=== PATIENT | male | born 1940 | race Caucasian/White ===

== ENCOUNTER 2017-10-23 09:26 | Emergency (ER) | payer MEDICARE, OTHER ==
[~2017-10-23] VITALS: Ht 190.5 cm; Wt 150.0 kg
[~2017-10-23 09:26] MED LIST: LORT5TAB PO; MEDR4PAK3 PO; METH4TAB6 PO; PRED20 PO
[2017-10-23 09:32] VITALS: BP 141/72; PULSE 84; RESP 22; TEMP 97.7; O2SAT 93
--- NOTE | 2017-10-23 10:20 | PD ---
HPI Chief Complaint: Skin Problem Time Seen by Provider: 10:11 Travel History International Travel<30 days: No Contact w/Intl Traveler<30days: No Traveled to known affect area: No History of Present Illness HPI This is a 76-year-old male who presents to the emergency department with a growth on his right forearm, constant, worsening over the past 2 weeks associated with some tenderness around the area. He tried to contact his primary care physician but found out that he retired. He's not had any drainage from the area. 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) Psychiatric: No Reproductive: No Respiratory: Yes Immunizations Current: Yes Sleep Apnea: Yes (HAS A CPAP MACHINE DOES NOT USE ALL THE TIME) Social History Alcohol Use: Yes (one drink daily) Tobacco Use: No Substance Use: No Allergies-Medications (Allergen,Severity, Reaction): Coded Allergies: penicillin G (Unverified Allergy, Unknown, 05/10/17) Reported Meds & Prescriptions Reported Meds & Active Scripts Active Lortab 5/500 (Acetaminophen/Hydrocodone Bitart) 5 Mg/500 Mg Tab 1 Tab PO Q6 PRN Deltasone (Prednisone) 20 Mg Tab 20 Mg PO DIRECTED 2 TABS PO DAILY FOR 3 DAYS,THEN 1 TAB PO DAILY FOR 3 DAYS. BEGIN ON 06/10/13 Medrol Dosepak (Methylprednisolone) 4 Mg Ebenezer 4 Mg PO DIRECTED TAKE DIRECTED Reported Medrol 4 Mg Tab (Methylprednisolone) 4 Mg Tab 4 Mg PO DAILY Review of Systems General / Constitutional: No: Fever, Chills Gastrointestinal: No: Nausea, Vomiting Physical Exam Narrative GENERAL: Well-appearing, no acute distress, nontoxic SKIN: 2 cm raised lesion, ulcerated, spongy with some surrounding erythema on the right forearm HEAD: Atraumatic. Normocephalic. ENT: No nasal bleeding or discharge. Moist mucous membranes MUSCULOSKELETAL: No obvious deformities. No clubbing. No cyanosis. No edema. NEUROLOGICAL: Awake and alert. No obvious cranial nerve deficits. Motor grossly within normal limits. Normal speech. PSYCHIATRIC: Appropriate mood and affect; insight and judgment normal. Data Data Last Documented VS Vital Signs Date Time Temp Pulse Resp B/P (MAP) Pulse Ox O2 Delivery O2 Flow Rate FiO2 10/23/17 09:32 97.7 84 22 141/72 (95) 93 Room Air MDM Medical Decision Making Medical Screen Exam Complete: Yes Emergency Medical Condition: Yes Differential Diagnosis Skin cancer, hemangioma, cyst, abscess Narrative Course This is a 76-year-old male who presents to the emergency department with a growth on his right forearm. It does appear somewhat cancerous. I explain to the family were limited and how we can evaluate this in the emergency department Patient requires outpatient follow-up with dermatology. He was given a list of local dermatologists. Diagnosis Primary Impression: Skin abnormality Patient Instructions: General Instructions Additional Instructions: Follow up with a legal executive as soon as possible. Med/Other Pt SpecificInfo: No Change to Meds Disposition: 01 DISCHARGE HOME Condition: Stable Maranda Nickerson MD Oct 23, 2017 10:20
== END 2017-10-23 10:43 | disposition home or self-care (01) ==
LOC: NEPD 09:26
DX: R23.9 Unspecified skin changes (principal); Z88.0 Allergy status to penicillin; Z79.899 Other long term (current) drug therapy
CPT/HCPCS: 99281

== ENCOUNTER 2017-12-20 05:45 | Emergency (ER) | payer MEDICARE ==
[~2017-12-20] VITALS: Ht 190.5 cm; Wt 154.0 kg
[2017-12-20 05:52] VITALS: BP 162/100; PULSE 89; RESP 18; TEMP 98.8; O2SAT 96
--- NOTE | 2017-12-20 06:19 | PD ---
HPI Chief Complaint: Fall Time Seen by Provider: 05:55 Travel History International Travel<30 days: No Contact w/Intl Traveler<30days: No Traveled to known affect area: No History of Present Illness HPI The patient is a 76-year-old male that fell yesterday and hit his left knee anteriorly after tripping and falling. The pain got worse and tonight he could not sleep. He is not on any anticoagulants. He has an allergy to penicillin G. He is not on any medications. He is a former smoker and has sleep apnea and has a CPAP machine but does not use it all the time. He denies any other injury. He denies any locking or giving away. 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) Psychiatric: No Reproductive: No Respiratory: Yes Immunizations Current: Yes Sleep Apnea: Yes (HAS A CPAP MACHINE DOES NOT USE ALL THE TIME) Tetanus Vaccination: Unknown Influenza Vaccination: Yes Past Surgical History Surgical History: No Previous Surgery Other Surgery: No Social History Alcohol Use: Yes (one drink daily) Tobacco Use: No Substance Use: No Allergies-Medications (Allergen,Severity, Reaction): Coded Allergies: penicillin G (Unverified Allergy, Unknown, 12/20/17) Reported Meds & Prescriptions Reported Meds & Active Scripts Active No Active Prescriptions or Reported Medications Review of Systems Except as stated in HPI: all other systems reviewed are Neg Physical Exam Narrative GENERAL: Well-nourished, obese patient in moderate apparent distress with his left knee discomfort.. SKIN: Focused skin assessment warm/dry. HEAD: Normocephalic. EYES: No scleral icterus. No injection or drainage. NECK: Supple, trachea midline. No JVD or lymphadenopathy. CARDIOVASCULAR: Regular rate and rhythm without murmurs, gallops, or rubs. RESPIRATORY: Breath sounds equal bilaterally. No accessory muscle use. GASTROINTESTINAL: Abdomen soft, non-tender, nondistended. MUSCULOSKELETAL: No cyanosis, or edema. There is lateral joint line tenderness present. No deformity is noted on the knee. There is no patellar tenderness present. No obvious contusions are seen. He does get relief when pillows are placed under the knee so the knees in slight flexion. Collaterals, drawer, Morgan all test intact. BACK: Nontender without obvious deformity. No CVA tenderness. Data Data Last Documented VS Vital Signs Date Time Temp Pulse Resp B/P (MAP) Pulse Ox O2 Delivery O2 Flow Rate FiO2 12/20/17 05:55 89 18 96 Room Air 12/20/17 05:52 98.8 162/100 (120) Orders Orders Knee, Complete (4vws) (12/20/17 05:55) [facility] Medical Decision Making Medical Screen Exam Complete: Yes Emergency Medical Condition: Yes Medical Record Reviewed: Yes Interpretation(s) The x-ray of the left knee shows mild osteoarthritis without fracture. Differential Diagnosis Contusion knee, osteoarthritis, cartilage tear, fracture knee, joint effusion Narrative Course The patient appears to have a contusion of the knee. It is quite painful and the patient will be given Percocet 5. He is to rest with the knee slightly flexed. He is also given Mobic. He should follow-up with his primary care physician next week. Diagnosis Primary Impression: Contusion of left knee Additional Instructions: Do not drink alcohol or drive on the Percocet 7.5. It will likely make you dizzy and even nauseated. Drink plenty of fluids so you do not get constipated. Follow-up with your primary care physician next week. Med/Other Pt SpecificInfo: Prescription(s) given Scripts Oxycodone-Acetaminophen (Percocet) 7.5-325 mg Tab 1 TAB PO Q6H Y for PAIN, #15 TAB 0 Refills Prov: Jones France MD 12/20/17 Meloxicam (Mobic) 15 Mg Tab 15 MG PO DAILY, #30 TAB 0 Refills Prov: Jones France MD 12/20/17 Disposition: 01 DISCHARGE HOME Condition: Stable Jones France MD Dec 20, 2017 06:19
--- NOTE | 2017-12-20 06:23 | RADRPT ---
EXAM DATE/TIME: 12/20/2017 05:59 [facility] COMPARISON: No previous studies available for comparison. INDICATIONS : Left knee pain after fall. MEDICAL HISTORY : None. SURGICAL HISTORY : None. ENCOUNTER: Initial ACUITY: 1 day PAIN SCORE: 7/10 LOCATION: Left knee. FINDINGS: Four view examination of the left knee demonstrates no evidence of fracture or dislocation. Mild oste oarthritis. Soft tissue swelling. No definite joint effusion. CONCLUSION: Mild osteoarthritis without fracture.. Kan Ponce MD on December 20, 2017 at 6:21 Board Certified Radiologist. This report was verified electronically.
[2017-12-20] MEDS ORDERED: MOBI15TA PO (06:31)
[2017-12-20] MEDS ORDERED: PERC7.5T13 PO (06:31)
[2017-12-20] MEDS ORDERED: KETOROLAC TROMETHAMINE 60 MG/2 ML (IM) VIAL IVP ONE (06:45)
[2017-12-20] MEDS ORDERED: oxyCODONE/ACETAMINOPHEN 7.5 MG/325 MG TAB PO ONE (06:45)
[2017-12-20] MEDS ORDERED: KETOROLAC TROMETHAMINE 60 MG/2 ML (IM) VIAL IM ONE (06:45)
[2017-12-20 07:16] VITALS: RESP 18
== END 2017-12-20 07:17 | disposition home or self-care (01) ==
LOC: PHED 05:45
DX: S80.02XA Contusion of left knee, initial encounter (principal); M17.12 Unilateral primary osteoarthritis, left knee; G47.30 Sleep apnea, unspecified; W01.198A Fall on same level from slipping, tripping and stumbling with subsequent striking against other object, initial encounter; Z87.891 Personal history of nicotine dependence; Z88.0 Allergy status to penicillin
CPT/HCPCS: 73564; 96372; 99283; J1885